=== PATIENT | male | born 1960 | race Caucasian/White ===

== ENCOUNTER 2024-06-29 09:34 | Outpatient (AMB) | payer MEDICARE, MEDICAID, SELFPAY ==
[2024-06-29 10:28] VITALS: BP 117/62; PULSE 109; RESP 16; TEMP 36.6; O2SAT 93; BMI 30.1
--- NOTE | 2024-06-29 10:28 | PD.ORTHCLVIS ---
Vital signs 06/29/24 10:28 Height 1.73 m Height Method Stated Weight 89.811 kg Weight Measurement Method Standing Scale BMI 30.1 BP 117/62 Blood Pressure Source Automatic Cuff Blood Pressure Location Left Upper Arm Position Sitting Respiration 16 Pulse 109 H Pulse Source Monitor Temp 97.8 F Temp Source Temporal Artery Scan Pulse Oximetry (%) 93 L Oxygen Delivery Method Room Air Med/Allergies Allergies & Medications Allergies metformin Allergy (Uncoded 06/29/24 10:29) Medication Reconciliation No Known Home Medications 06/29/24 [History Confirmed 06/29/24] Exam Exam Patient is in no acute distress and is cooperative with the examination today. Breathing is nonlabored. Patient has a normal mood and affect. Bilateral extremities were evaluated and demonstrates sensation intact to light touch. Palpable pedal pulses are present. No significant edema is present. Bilateral hips were examined. The patient has no pain with log roll of the hips. Internal rotation to 30 degrees and external rotation to 30 degrees is painless. Negative FADIR. Left knee was examined today. The left knee is in reasonable alignment. Range of motion from 0-120 degrees. Knee is stable to varus and valgus as well as AP translation with <5mm. Patient has a negative McMurrays. There is no pain with patellofemoral compression and no crepitus noted. The knee is nontender to palpation. The right knee was also examined. The right knee is in [varus] alignment. Range of motion from [0-115] degrees. Knee is stable to varus and valgus as well as AP translation with <5mm. Patient has a [negative] McMurrays. There is [no] pain with patellofemoral compression and [no] crepitus noted. The knee is [tender] to palpation [medially]. Patient has an MRI which demonstrates a large flap tear of the medial meniscus. There are no x-rays with him today Assessment and Plan Problem List (1) Medial meniscus tear: Status: Acute Plan: Patient is a 63-year-old male with right knee pain and right knee arthritis. We discussed nonoperative and operative options. We discussed that this has been ongoing for a while and we typically would recommend conservative treatment first. He also states that he does not want to make this drive here as it is far away and would prefer someone closer in [place]. He has Medicare and there are likely many options for him. I recommend that he see a provider closer to him. He would like a right knee injection today which I think is reasonable. Recommend knee cortisone injection as patient would like to proceed with conservative treatment at this time. The risks and benefits of the procedure were reviewed with the patient and patient gave verbal consent to continue with the procedure. Procedure: performed by Dr. Gaston Using sterile technique the Right knee was thoroughly prepped with alcohol, and approximately 1 cc of Kenalog 40 mg/mL and 4 cc of 1% lidocaine was injected without resistance into the medial tibial femoral joint space. The patient tolerated the procedure. Advanced Care Planning Discussion Advance care planning discussed with:: patient Office Procedures GNS Level of Care Nursing/Assessment Patient Status: Initial/New Patient Nursing Assessment/Reassesment: Medication Reconciliation, Update PMH in EMR and Vital Signs Coordination of Care: Complex Care and Chronic Disease 1-5 and Education Complex Pt/Fam New Patient Charge New Patient Point Assignment: 5554 New Patient Point Charge: GLUE MAKER Level 2 (9828-8652) Surgical Proc/IM SQ injection Major Surgical Procedure: Yes (KNEE INJECTION) Medication Given Medication Given Medication Given: Yes Documented Dose Given: 4 Route: Infiitration Medication Given Medication Given Medication Given: Yes Documented Dose Given: 1 Route: Infiitration Office Meds Xylocaine 10 mg/mL (1 %) injection solution Performing Provider: Issa Gaston MD Performing Location: [facility] Administered by: Issa Gaston MD on 06/29/24 11:05 Dose Route Admin Location Dispensed Lot Number Expiration Date [facility] [place] [employer] 20 mL Infiltration 20 mL [id number] 03/10/27 71364-034-59 [facility] triamcinolone acetonide 40 mg/mL suspension for injection Performing Provider: Issa Gaston MD Performing Location: [facility] Administered by: Issa Gaston MD on 06/29/24 11:05 Dose Route Admin Location Dispensed Lot Number Expiration Date [facility] [employer] 40 mg Infiltration 1 mL [id number] 12/08/25 4754-0927-77 [employer] [place] Intake Visit Data Collection New Patient or Established: New Patient (never been to [facility]) Reason for Visit:: rt knee pain Seen by Clinical Staff ONLY (RN/MA): No Verbal consent obtained for Telemed visit?: No 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 During the conversation, he repeatedly states that he is very unhappy that he had to drive here and wants a place closer to him. He has had a longstanding history of right knee pain. He had an MRI at [facility] which demonstrated an medial meniscus tear. The primary issue he is having his pain and it is chronic. 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
== END 2024-06-29 11:07 | disposition home or self-care (01) ==
PROVIDERS: PCP Physician Assistant; Referring Provider Physician Assistant; Supervising Provider Orthopaedic Surgery Adult Reconstructive Orthopaedic Surgery; Visit Provider Orthopaedic Surgery Adult Reconstructive Orthopaedic Surgery
DX: S83.249D Other tear of medial meniscus, current injury, unspecified knee, subsequent encounter (principal); X58.XXXD Exposure to other specified factors, subsequent encounter; M17.11 Unilateral primary osteoarthritis, right knee; M25.561 Pain in right knee
CPT/HCPCS: 20610; 99202; J3301; J3490; G0463